=== PATIENT | female | born 1945 | race Caucasian/White ===

== ENCOUNTER 2018-02-04 15:17 | Outpatient (REF) | payer MEDICARE, BC, SELFPAY ==
[2018-02-04 20:18] LABS: HCT 41.4 % (36.0-46.0); HGB 13.9 g/dL (12.0-15.5); Mean Corp. HGB Concentration 33.6 g/dL (32.0-36.0); Mean Corpuscular Hemoglobin 30.3 pg (27.0-33.0); Mean Corpuscular Volume 90.2 fL (80-95); Mean Platelet Volume 10.7 fL (8.0-11.0); Platelet Count 244 x1000/uL (130-400); RBC 4.59 m/cumm (4.00-5.20); RBC Distribution Width 13.7 % (11.7-14.6); White Blood Cell Count 4.27 k/cumm (4.4-10.8)
[2018-02-04 20:22] LABS: ALT 20 U/L (12-78); AST 13 U/L (15-37); Albumin 3.8 g/dL (3.4-5.0); Alkaline Phosphatase 82 U/L (46-116); Anion Gap 8.4 mmol/L (3-11); BUN 22 mg/dL (7-18); Bilirubin, Total 0.4 mg/dL (0.2-1.0); CO2 30.6 mmol/L (21.0-32.0); CREATININE 0.68 mg/dL (0.55-1.02); Calcium 9.2 mg/dL (8.5-10.1); Chloride 104 mmol/L (98-107); Glucose 102 mg/dL (70-100); Potassium 4.1 mmol/L (3.5-5.1); Sodium 143 mmol/L (136-145); Total Protein 6.7 g/dL (6.4-8.2)
== END 2018-02-04 15:37 ==
LOC: NCHCN 15:17
PROVIDERS: Visit Provider Family Medicine
DX: Z01.818 Encounter for other preprocedural examination (principal); R69 Illness, unspecified
CPT/HCPCS: 80053; 85027

== ENCOUNTER 2019-07-18 15:54 | Outpatient (REF) | payer MEDICARE, BC, SELFPAY ==
[2019-07-18 22:35] LABS: Calculated LDL 177 mg/dL (<100); Cholesterol 282 mg/dL (<200); HDL Cholesterol 89 mg/dL (40-60); Triglyceride 82 mg/dL (<150)
[2019-07-18 22:42] LABS: Hemoglobin A1C 5.7 % (3.8-5.6)
[2019-07-18 22:56] LABS: C-Reactive Protein 0.15 mg/dL (0.0-0.3)
== END 2019-07-18 16:14 ==
LOC: NCHCN 15:54
PROVIDERS: PCP Physician Assistant Medical; Visit Provider Family Medicine
DX: E78.00 Pure hypercholesterolemia, unspecified (principal); E78.5 Hyperlipidemia, unspecified; R73.09 Other abnormal glucose; E66.3 Overweight; M17.0 Bilateral primary osteoarthritis of knee
CPT/HCPCS: 80061; 83036; 86140

== ENCOUNTER 2019-10-05 02:41 | Outpatient (CLI) | payer MEDICARE, BC, SELFPAY ==
--- NOTE | 2019-10-05 | DI.MAMMO_ITS ---
EXAM: MG MAMMO SCREENING CLINICAL HISTORY: SCREENING,Z12.39 TECHNIQUE: Mammograms were interpreted according to the usual protocol including computer analysis w [employer] CAD system, tomosynthesis and C-view imaging. COMPARISON: FINDINGS: The breasts are moderate density with fairly symmetrical distribution of fibroglandular tissue. No d ominant mass or clumped microcalcification is identified in either breast. The current examination i s compared with previous examinations including August 2015 and there has been no gross interval santiago e in appearance in comparison with previous studies. IMPRESSION: No specific evidence of malignancy at this time. Routine screening examinations are suggested at yea rly intervals in this age group according to the ACS ACR guidelines Category category: BI-RADS Cat 1 - Negative Breast Density - Category B - Scattered areas of fibroglandular density
--- NOTE | 2019-10-05 10:15 | DI.US_ITS ---
EXAM: US PELVIS TRANSVAGINAL CLINICAL HISTORY: <inf_study_reason> TECHNIQUE: Ultrasound of the pelvic, both abdominal and transvaginal was performed using standard pr otocol. COMPARISON: No exams were available for comparison FINDINGS: KIDNEYS: Kidneys are symmetric in size. No evidence of renal calculi. No evidence of hydronephrosis. No renal mass or cyst identified. The bladder is unremarkable. UTERUS: Position: Anteverted. Size: cm Endometrium: 5 millimeters in thickness. The endometrium appears heterogeneous, multiple small cysti c appearing areas.. Myometrium: Unremarkable. No fibroids. Cervix: Unremarkable. OVARIES: Neither ovary was able to be visualized transabdominally or transvaginally. CUL-DE-SAC: Free fluid: None. IMPRESSION: 1. Normal sonographic appearance of the kidneys. 2. Normal post menopausal uterus. thickened heterogeneous endometrium. No focal masses seen. 3. Nonvisualization of the ovaries. DATA REPOSITORY:
--- NOTE | 2019-10-05 10:50 | DI.RAD_ITS ---
EXAM: XR LUMBAR SPINE COMPLETE INDICATION: BACK PAIN, FELL FROM HORSE. COMPARISON: No exams were available for comparison TECHNIQUE: 2D digital imaging was performed. FINDINGS: The vertebral bodies are well maintained in height. The T12-L1 through L3-4 levels are unremarkable. There is moderate narrowing of the L4-5 disc space. There are prominent facet degenerative changes . There is marked narrowing of the L5-S1 disc space. No spondylolysis or spondylolisthesis is seen. Degenerative changes are seen at the SI joints, left greater than right. IMPRESSION: Degenerative changes greatest at L4-5 and L5-S1. DATA REPOSITORY: RADIATION DOSE DELIVERED:
--- NOTE | 2019-10-05 11:00 | DI.RAD_ITS ---
EXAM: XR HIP PELVIS ADULT BL CLINICAL HISTORY: HIP PAIN, FELL FROM HORSE. TECHNIQUE: 2D digital imaging was performed. COMPARISON: No exams were available for comparison FINDINGS: BONES: No acute fracture is present. No bony destructive lesion is seen. JOINTS: No dislocation present. The SI joints and pubic symphysis appear intact. There is minimal ac etabular spurring. The joint spaces are well maintained. SOFT TISSUE: Normal. IMPRESSION: Unrmarkable radiographs of bilat hips. Unremarkable radiographs of the pelvis DATA REPOSITORY: RADIATION DOSE DELIVERED:
--- NOTE | 2019-10-05 11:04 | DI.RAD_ITS ---
EXAM: XR THORACIC SPINE COMPLETE INDICATION: BACK PAIN, M54.5. COMPARISON: No exams were available for comparison TECHNIQUE: 2D digital imaging was performed. FINDINGS: There is a slight upper thoracic dextroscoliosis. There is mild compression of the inferior endplate of T10. The remaining vertebral bodies are well maintained in height. There are small endplate ost eophytes. Visualized portions of the lungs appear clear. The heart size appears normal. IMPRESSION: Mild compression fracture of the inferior endplate of T10. DATA REPOSITORY: RADIATION DOSE DELIVERED:
== END 2019-10-05 03:01 ==
PROVIDERS: PCP Family Medicine; Visit Provider Family Medicine
DX: Z12.31 Encounter for screening mammogram for malignant neoplasm of breast (principal); M25.551 Pain in right hip; M25.552 Pain in left hip; M54.5 Low back pain; M48.54XA Collapsed vertebra, not elsewhere classified, thoracic region, initial encounter for fracture; V80.010A Animal-rider injured by fall from or being thrown from horse in noncollision accident, initial encounter; M51.37 Other intervertebral disc degeneration, lumbosacral region; R10.2 Pelvic and perineal pain; N85.00 Endometrial hyperplasia, unspecified
CPT/HCPCS: 73521; 77063; 77067; 72072; 72110; 76830; 76856

== ENCOUNTER 2021-07-21 11:22 | Outpatient (REF) | payer MEDICARE, BC, SELFPAY ==
[2021-07-21 14:42] LABS: Calculated LDL 118 mg/dL (<100); Cholesterol 225 mg/dL (<200); HDL Cholesterol 86 mg/dL (40-60); Triglyceride 105 mg/dL (<150)
[2021-07-21 15:05] LABS: Vitamin D 25 Total 38.4 ng/mL (30-100)
== END 2021-07-21 11:23 | disposition home or self-care (01) ==
LOC: NCHCN 11:22
PROVIDERS: PCP Family Medicine; Visit Provider Family Medicine
DX: Z13.220 Encounter for screening for lipoid disorders (principal); Z13.820 Encounter for screening for osteoporosis
CPT/HCPCS: 80061; 82306

== ENCOUNTER 2021-10-30 16:28 | Outpatient (REF) | payer MEDICARE, BC, SELFPAY ==
[2021-11-01 12:09] LABS: COVID-19 RT-PCR UVMMC Result Negative (Negative)
== END 2021-10-30 16:29 | disposition home or self-care (01) ==
LOC: NCHCN 16:28
PROVIDERS: PCP Family Medicine; Visit Provider Family Medicine
DX: Z20.822 Contact with and (suspected) exposure to COVID-19 (principal); J06.9 Acute upper respiratory infection, unspecified
CPT/HCPCS: U0003; U0005

== ENCOUNTER 2022-03-27 14:58 | Outpatient (REF) | payer MEDICARE, BC, SELFPAY | END 2022-03-27 14:59 | disposition home or self-care (01) | LOC: NCHCN 14:58 | PROVIDERS: PCP Family Medicine; Visit Provider Family Medicine | DX: R35.0 Frequency of micturition (principal) | CPT/HCPCS: 87086 ==

== ENCOUNTER 2023-10-19 19:02 | Outpatient (REF) | payer MEDICARE, BC, SELFPAY ==
[2023-10-19 15:47] LABS: HCT 45.9 % (36.0-46.0); HGB 15.2 g/dL (11.2-15.7); MCH 30.6 pg (27.0-33.0); MCHC 33.1 % (32.0-36.0); MCV 93 fL (80-95); MPV 11.4 fL (8.0-11.0); Platelet Count 257 10^3/uL (130-400); RBC 4.96 10^6/uL (3.93-5.22); RDW 13.5 % (11.7-14.6); RDW-SD 45.9 fL; WBC 5.27 10^3/uL (4.4-10.8)
[2023-10-19 16:32] LABS: Vitamin B12 408 pg/mL (193-986)
== END 2023-10-19 19:03 | disposition home or self-care (01) ==
LOC: NCHCN 19:02
PROVIDERS: PCP Family Medicine; Visit Provider Family Medicine
DX: R53.83 Other fatigue (principal)
CPT/HCPCS: 85027; 82607; 84443

== ENCOUNTER 2024-08-24 11:10 | Outpatient (REF) | payer MEDICARE, BC, SELFPAY | END 2024-08-24 11:11 | disposition home or self-care (01) | LOC: NCHCN 11:10 | PROVIDERS: PCP Family Medicine; Visit Provider Family Medicine | DX: R30.0 Dysuria (principal) | CPT/HCPCS: 87086 ==

== ENCOUNTER 2025-03-31 11:20 | Emergency (ER) | payer MEDICARE, BC, SELFPAY ==
[2025-03-31] VITALS (11 sets, daily range): BP systolic 128–148; BP diastolic 43–59; PULSE 43–63; RESP 7–21; TEMP 36.1; O2SAT 89–98
--- NOTE | 2025-03-31 11:15 | RT.EKG_ITS ---
APPROVED REPORT Exam: Resting ECG Reason for Exam: low heart rate Patient Location: E HR:40 bpm ECG Measurements Heart Rate 40 AXIS [place] 149 P 70 QRSd 85 QRS 25 QT 476 T 36 QTc 390 Conclusion Sinus bradycardia...rate< 60 Physician: No STEMI
[2025-03-31 13:16] LABS: Glucose Negative (Negative)
[2025-03-31 13:29] LABS: C & S Indicated? No
[2025-03-31] MEDS: Cyclobenzaprine 10 MG TAB PO (13:35)
[2025-03-31] MEDS: ACETAMINOPHEN 1,000 MG/100 ML BAG 400 MG IVPB (13:35)
[2025-03-31 13:38] LABS: Abs Immature Grans 0.01 10^3/uL (0.0-0.06); HCT 45.7 % (36.0-46.0); HGB 15.6 g/dL (11.2-15.7); Immature Grans % 0.2 %; MCH 29.8 pg (27.0-33.0); MCHC 34.1 % (32.0-36.0); MCV 87 fL (80-95); MPV 10.0 fL (8.0-11.0); Platelet Count 244 10^3/uL (130-400); RBC 5.24 10^6/uL (3.93-5.22); RDW 13.3 % (11.7-14.6); RDW-SD 42.5 fL; WBC 5.53 10^3/uL (4.4-10.8)
[2025-03-31] MEDS: Normal Saline 500 ML IV (13:38)
[2025-03-31 13:50] LABS: INR 1.0 (0.9-1.1); PTT Activated 23.8 sec (20.6-30.2); Prothrombin Time 10.4 sec (9.1-11.1)
[2025-03-31 13:52] LABS: Lipase 43 U/L (<53)
[2025-03-31 13:54] LABS: Troponin I 10 ng/L (<35)
[2025-03-31 13:55] LABS: ALT 11 U/L (10-49); AST 17 U/L (<34); Albumin 4.4 g/dL (3.4-5.0); Alkaline Phosphatase 99 U/L (46-116); Anion Gap 6.8 mmol/L (3-11); BUN 12 mg/dL (9-23); Bilirubin, Total 0.70 mg/dL (0.2-1.2); CO2 29.2 mmol/L (20.0-31.0); Calcium 9.0 mg/dL (8.3-10.6); Chloride 108 mmol/L (98-107); Glucose 83 mg/dL (74-106); Potassium 4.3 mmol/L (3.5-5.1); Sodium 144 mmol/L (136-145); Total Protein 6.9 g/dL (5.7-8.2)
[2025-03-31] MEDS: Omnipaque 350 MG/ML 100 ML BTL IJ (14:16)
[2025-03-31] MEDS: Normal Saline - Diluent 50 ML VIAL IJ (14:16)
[2025-03-31] MEDS: Normal Saline Flush 10 ML SYR IVP (14:16)
--- NOTE | 2025-03-31 14:20 | DI.CT_ITS ---
Exam(s) CT LUMBAR SPINE RECONS CT CHEST PE ABD PELVIS W EXAM: CT CHEST PE ABD PELVIS W CLINICAL HISTORY: Pleuritic chest pain, shortness of breath. TECHNIQUE: Imaging Protocol: Axial computed tomography images with coronal and sagittal reformatted images were created and reviewed. Computer aided detection (CAD) was utilized. Axial, coronal and sagittal images of the lumbar spine were reconstructed from the abdomen pelvic CT in bone and soft tissue algorithm. CONTRAST MATERIAL: Intravenous: Omnipaque 350 Contrast volume:80 ml Oral: no COMPARISON: CR XR THORACIC SPINE COMPLETE from 10/05/2019 CR XR HIP PELVIS ADULT BL from 10/05/2019 CR XR LUMBAR SPINE COMPLETE from 10/05/[address] LUMBAR SPINE RECONS from 03/31/2025 FINDINGS: CHEST: Pulmonary parenchyma: Mild basilar dependent changes. No consolidation. No dominant measurable mass. Tracheobronchial tree: No bronchiectasis. No mucous plugging.No bronchial wall thickening. Pleura: No effusion or pneumothorax. Mediastinum: Within normal limits. Pulmonary arteries: No visible emboli. Cardiovascular: The heart is enlarged. No pericardial effusion. Thoracic aorta non-dilated. Bones: Old T10 mild compression fracture. No lytic or blastic lesions. No compression fractures. Soft tissues: Unremarkable. ABDOMEN and PELVIS: Liver: Normal density. Simple cysts in the liver. No follow-up is recommended. No suspicious mass. Gallbladder and biliary tract: No evidence of stones or wall thickening. No biliary dilatation. Pancreas: Normal density, no abnormal calcifications or inflammatory process. Spleen: Normal. Kidneys: Normal size, contour and axis. No radiodense stones. No obstructive uropathy. No suspicious masses seen. Adrenal glands: No masses seen. Aorta: Abdominal portion non-dilated. Lymph nodes: Within normal limits. Soft tissues: Unremarkable. Bladder: Unremarkable. Bowel: Small hiatal hernia. no obstruction or bowel wall thickening. The appendix is normal. Moderate quantity of stool. Peritoneal cavity: No ascites. No focal collection. No mesenteric inflammatory response. No free air. Bones: No evidence of fracture. Degenerative changes, greatest at L4-5 and L5-S1. Reproductive organs: Unremarkable for age. IMPRESSION: No acute abnormality in the chest, abdomen or pelvis. Old mild T10 compression fracture. No evidence of acute spine or pelvic fracture. The preliminary [facility] report was reviewed. RADIATION DOSE DELIVERED: Total DLP DATA REPOSITORY: All CT scans at this facility are submitted to the National Radiology Data Registry (NRDR) Dose Index Registry (DIR) with the [employer] (ACR). RADIATION OPTIMIZATION: All CT scans at this facility use at least one of these dose optimization techniques: automated exposure control; mA and/or kV adjustment per patient size (includes targeted exams where dose is matched to clinical indication); or iterative reconstruction.
[2025-03-31 14:49] LABS: Troponin I 9 ng/L (<35)
--- NOTE | 2025-03-31 14:56 | DI.[facility]_ITS ---
PROCEDURE INFORMATION: Exam: CT Lumbar Spine Without Contrast Exam date and time: 03/31/2025 2:05 PM Age: 80 years old Clinical indication: Other: Right upper quadrant abdominal pain, low bilateral TECHNIQUE: Imaging protocol: Computed tomography of the lumbar spine without contrast. COMPARISON: CR XR LUMBAR SPINE COMPLETE 10/05/2019 10:39 AM FINDINGS: Bones/joints: There are mild degenerative changes of the sacroiliac joints. Demineralization of the visualized bones, limiting sensitivity for nondisplaced fractures. There is a curvature of the lumbar spine convex to the left. The lumbar spine demonstrates mild to moderate degenerative changes at multiple levels. There is no evidence of acute fracture. There are no compression fractures or deformities. Mild anterolisthesis of L3 over L4 due to facet joint arthropathy. Soft tissues: Unremarkable. IMPRESSION: [id number] multilevel degenerative disease of the lumbar spine, most pronounced at L3-L4 but no severe thecal sac compression or neural foraminal stenosis. Dictated and Authenticated by: Cj Deleon MD. Orderin Guille Henderson MD
--- NOTE | 2025-03-31 15:01 | DI.[facility]_ITS ---
PROCEDURE INFORMATION: Exam: CTA Chest With Contrast CTA Abdomen With Contrast Exam date and time: 03/31/2025 2:05 PM Age: 80 years old Clinical indication: Other: Right upper quadrant abdominal pain, low bilateral TECHNIQUE: Imaging protocol: Computed tomographic angiography of the chest with contrast. Exam focused on the arteries. Computed tomographic angiography of the abdomen with contrast. Exam focused on the arteries. 3D rendering (Not supervised by radiologist): MIP and/or 3D reconstructed images were created by the technologist. Contrast material: OMNIPAQUE 350; Contrast volume: 80 ml; Contrast route: INTRAVENOUS (IV); COMPARISON: CR XR THORACIC SPINE COMPLETE 10/05/2019 10:38 AM FINDINGS: VASCULATURE: Pulmonary arteries: Normal. No pulmonary emboli. Aorta: No aortic aneurysm. No aortic dissection. Celiac and mesenteric arteries: No occlusion or significant stenosis. Renal arteries: No occlusion or significant stenosis. Veins: There are numerous benign phleboliths in the pelvis. CHEST: Lungs: Bibasilar atelectasis. There is no evidence of focal pulmonary consolidation. Pleural spaces: Unremarkable. No pneumothorax. No pleural effusion. Heart: Unremarkable. No cardiomegaly. No pericardial effusion. Diaphragm: A small hiatal hernia is present. ABDOMEN AND PELVIS: Liver: Multiple hypodense hepatic lesions consistent with cysts measuring up to 2 cm in the right hepatic lobe. Gallbladder and biliary ducts: Unremarkable. No calcified stones. No ductal dilation. Pancreas: Unremarkable. No mass. No ductal dilation. Spleen: Unremarkable. No splenomegaly. Adrenal glands: Unremarkable. No mass. Kidneys: Unremarkable kidneys. No solid mass. No hydronephrosis. Stomach and bowel: Unremarkable. No obstruction. No mucosal thickening. Intraperitoneal space: Unremarkable. No free air. No significant fluid collection. Lymph nodes: Unremarkable. No enlarged lymph nodes. Bones/joints: Mild curvature of the thoracic spine convex to the right. The thoracic spine demonstrates mild degenerative changes at multiple levels. Mild compression deformity of the T10 vertebral body. There are mild degenerative changes of the hip joints. The pubic symphysis demonstrates mild degenerative changes. There are mild degenerative changes of the sacroiliac joints. Soft tissues: Unremarkable. Other findings: The vasculature demonstrates diffuse mild atherosclerotic calcification. IMPRESSION: 1. No acute intra-abdominal process. 2. No acute cardiopulmonary process. 3. No pulmonary embolism. Dictated and Authenticated by: Cj Deleon MD. Orderin Guille Henderson MD
--- NOTE | 2025-03-31 15:09 | W.ED.GENAD ---
Discharge Plan Disposition Patient Disposition: Home Condition: Good Discharge Details Clinical Impression: Epigastric discomfort, Back pain Primary Care Provider: Terri Brothers ED Provider: Santiago Han Home Meds and New Rx's Prescriptions: No Action bupropion HCl 150 mg tablet extended release 24 hr 150 mg PO DAILY meloxicam 7.5 mg tablet 7.5 mg PO BID meclizine 25 mg tablet 25 mg PO TID PRN amoxicillin 500 mg capsule 500 mg PO ONCE PRN Rx Instructions: 1 hour before lifting zolpidem 5 mg tablet 6.25 mg PO HS PRN Discharge Instructions Instructions: Low Back Pain ED Additional Instructions: At this time as we discussed together your workup has returned very reassuring. There is no evidence of significant abnormality including heart attack, blood clot, severe bone fracture, electrolyte dysfunction, or other concerning pathology. As we discussed, you do have degenerative changes in your lower lumbar spine. Please continue to take Tylenol as needed for pain. Take the cyclobenzaprine only as needed for breakthrough back pain or muscle spasms. Please be mindful that this can cause sedation and make you feel significantly imbalanced. Make sure that you have a walker or someone to assist you if you are taking this medication to prevent any falls or trauma. If you notice any worsening of your symptoms, or any new symptoms such as vomiting, diarrhea, fever, chills, shortness of breath, chest pain, numbness, weakness, or fainting , please return immediately to the emergency department for reevaluation. Please follow up with your primary care provider as soon as possible for reassessment and reevaluation. As always, it was a pleasure participating in your medical care today. Stand Alone Forms: Portal Information Referrals: Terri Brothers [Primary Care Provider, Medicine] [facility] General Date/Time Provider Initiated Documentation: 03/31/25 11:42. [facility] Narrative: 80-year-old female with past medical history of anxiety, high cholesterol, presents today for evaluation of low back pain, mild epigastric discomfort with some mild difficulty breathing, and some mild associated chest tightness. Symptoms have been present for the last day. Back pain is made worse with movement bending or lifting. No improvement of symptomatology with rest. Chest symptoms are slightly made worse with breathing, but no associated nausea, vomiting or diarrhea. No tearing or ripping sensation. No chest heaviness, no significant pleuritic chest pain. Denies PE risk factors such as recent long car rides, immobilization, recent surgery, prior history of DVT or PE, morbid obesity, exogenous estrogen and smoking, hemoptysis, history of cancer. No other complaints at this time. Related Data Home Medications Medication Instructions Recorded Confirmed amoxicillin 500 mg capsule 500 mg PO ONCE PRN 03/31/25 03/31/25 bupropion HCl 150 mg 24 hr tablet, 150 mg PO DAILY 03/31/25 03/31/25 extended release meclizine 25 mg tablet 25 mg PO TID PRN 03/31/25 03/31/25 meloxicam 7.5 mg tablet 7.5 mg PO BID 03/31/25 03/31/25 zolpidem 5 mg tablet 6.25 mg PO HS PRN 03/31/25 03/31/25 Allergies Allergy/AdvReac Type Severity Reaction Status Date / Time ciprofloxacin (From Cipro) AdvReac Mild Nausea Verified 03/31/25 11:47 General Stated Complaint: Nk/Back Pain JEB: 2 Exam Narrative Exam Narrative: 1.Const: Well-nourished, Well-developed, appearing stated age 2.Eyes: PERRL, no conjunctival injection, and symmetrical lids. 3.ENT: Atraumatic external nose and ears. Moist MM. Neck: Symmetric, trachea midline, No thyromegaly. 4.CVS: +S1/S2, Peripheral pulses 2+ and equal in all extremities. Brisk capillary refill in all extremities. 5.RESP: Unlabored respiratory effort. Clear to auscultation bilaterally. No wheezes rales or rhonchi 6.GI: Soft, Nondistended, No hepatosplenomegaly. No guarding or rebound. Mild epigastric discomfort. 7.MSK: Normocephalic/Atraumatic, Extremities w/o deformity or ttp No cyanosis or clubbing, Normal movement of all extremities. No calf tenderness No midline tenderness over cervical thoracic or lumbar spine. Mild to moderate paraspinal spasms of the erector spinae muscles in the mid to lower lumbar regions. 8.Skin: Warm, Dry. No rashes or lesions. No rash or lesion on the back 9.Neuro: salvage cutter II-XII grossly intact. Sensation grossly intact, no focal neurologic deficits. 10.Psych: (AAO) x3. Appropriate mood and affect Course Vital Signs Vital signs: Vital Signs Temperature 36.1 C L 03/31/25 11:26 Pulse 44 L 03/31/25 11:26 Respiratory Rate 15 03/31/25 11:26 Blood Pressure 128/59 L 03/31/25 11:26 Pulse Oximetry 98 03/31/25 11:26 Temperature 36.1 C L 03/31/25 11:26 Pulse 63 03/31/25 13:04 Pulse 43 L 03/31/25 13:10 Respiratory Rate 14 03/31/25 13:10 Blood Pressure 134/43 L 03/31/25 12:25 Blood Pressure Mean 71 03/31/25 12:25 Blood Pressure Position Sitting 03/31/25 11:26 Pulse Oximetry 89 L 03/31/25 13:04 Oxygen Delivery Method Room Air 03/31/25 12:22 Oxygen Flow Rate 0 03/31/25 12:22 Pain Level 9 03/31/25 11:59 Lab/Test Results Lab/Test Results: Laboratory Tests Range/Units 03/31/25 03/31/25 03/31/25 13:00 13:25 14:25 WBC (4.4-10.8) 10^3/uL 5.53 RBC (3.93-5.22) 10^6/uL 5.24 H Hgb (11.2-15.7) g/dL 15.6 Hct (36.0-46.0) % 45.7 MCV (80-95) fL 87 MCH (27.0-33.0) pg 29.8 MCHC (32.0-36.0) % 34.1 RDW (11.7-14.6) % 13.3 Plt Count (130-400) 10^3/uL 244 MPV (8.0-11.0) fL 10.0 Immature Gran % % 0.2 Neutrophils % % 57.0 Lymphocytes % % 28.9 Monocytes % % 9.9 Eosinophils % % 2.7 Basophils % % 1.3 Nucleated RBC % (0.0-0.3) % 0.0 Absolute Neutrophils (1.2-6.7) 10^3/uL 3.15 Absolute Lymphocytes (1.2-3.4) 10^3/uL 1.60 Absolute Monocytes (0.1-0.8) 10^3/uL 0.55 Absolute Eosinophils (0.0-0.7) 10^3/uL 0.15 Absolute Basophils (0.0-0.2) 10^3/uL 0.07 PT (9.1-11.1) sec 10.4 INR (0.9-1.1) 1.0 APTT (20.6-30.2) sec 23.8 Sodium (136-145) mmol/L 144 Potassium (3.5-5.1) mmol/L 4.3 Chloride (98-107) mmol/L 108 H Carbon Dioxide (20.0-31.0) mmol/L 29.2 Anion Gap (3-11) mmol/L 6.8 BUN (9-23) mg/dL 12 Creatinine (0.55-1.02) mg/dL 0.74 Est GFR (CKD-EPI 2020) (mL/min/1.73m2) 75.50 Glucose (74-106) mg/dL 83 Calcium (8.3-10.6) mg/dL 9.0 Total Bilirubin (0.2-1.2) mg/dL 0.70 AST (<34) U/L 17 ALT (10-49) U/L 11 Alkaline Phosphatase (46-116) U/L 99 Troponin I (<35) ng/L 10 9 Total Protein (5.7-8.2) g/dL 6.9 Albumin (3.4-5.0) g/dL 4.4 Lipase (<53) U/L 43 Urine Color (Yellow) Yellow Urine Clarity (Clear) Clear Urine pH (5-8) 6.5 Ur Specific [place] (1.005-1.025) 1.015 Urine Protein (Neg-Trace) mg/dL Negative Urine Ketones (Negative) mg/dL Negative Urine Blood (Negative) Trace-intact H Urine Nitrite (Negative) Negative Urine Bilirubin (Negative) Negative Urine Urobilinogen (Up to 0.2) mg/dL 0.2 Ur Leukocyte Esterase (Negative) Small H Urine RBC (0-2) HPF 3-5 H Urine WBC (0-5) HPF 5-10 Ur Epithelial Cells (Negative) HPF Moderate Urine Crystals (Negative) HPF Negative Urine Bacteria (Negative) HPF Few Urine Casts (Negative) LPF Negative Urine Mucus (Negative) Moderate Urine Other (Negative) Negative Ur Culture Indicated? No Urine Glucose (Negative) mg/dL Negative Medical Decision Making 80-year-old female with past medical history of anxiety, high cholesterol, presents today for evaluation of low back pain, mild epigastric discomfort with some mild difficulty breathing, and some mild associated chest tightness. Symptoms have been present for the last day. Back pain is made worse with movement bending or lifting. No improvement of symptomatology with rest. Chest symptoms are slightly made worse with breathing, but no associated nausea, vomiting or diarrhea. No tearing or ripping sensation. No chest heaviness, no significant pleuritic chest pain. Denies PE risk factors such as recent long car rides, immobilization, recent surgery, prior history of DVT or PE, morbid obesity, exogenous estrogen and smoking, hemoptysis, history of cancer. No other complaints at this time. Exam demonstrates a well-appearing female, slightly dry mucous membranes, vital signs otherwise stable. No abdominal tenderness, no rash on the back or chest to suggest shingles, no abnormal lung sounds. Differential for the patient's symptomatology is quite broad, includes anxiety, cardiac etiology, PE, intra-abdominal pathology, pancreatitis, UTI or Jeovany. Back pain may be secondary to musculoskeletal etiology. We will get CT imaging to rule out PE, discopathy, osseous pathology, obstruction, we will evaluate for cardiac concerns, monitor closely and reassess. Will rehydrate, give cyclobenzaprine for muscle spasms. 3:35 PM Laboratory workup demonstrates no significant abnormality, no white count bandemia or left shift. Electrolytes normal, serial troponins normal. Lipase normal. Urinalysis was dirty, and we will get repeat. Patient feels much better after cyclobenzaprine and fluid rehydration. No evidence of cauda equina syndrome, no saddle anesthesia. She has normal reflexes. Patient otherwise looks notably well, and there is no evidence of acute life-threatening etiology noted on imaging. No evidence to suggest ACS. No PE or dissection. Patient there is evidence of mild to moderate multilevel degenerative disease of the lumbar spine, which is location of the patient's pain symptoms. No evidence to suggest cauda equina syndrome no. At this time with the patient's notable improvement of her symptoms, I do feel that discharge is reasonable. Will give small course of cyclobenzaprine to go home with, I had a long discussion with her about the potential concerns with this and the importance of close monitoring with her significant other for sleepiness or altered mental status while on the medication due to its sedative effects. She understands. Recommend continued NSAID therapy, stretching and heating pad. I have extensively reviewed the treatment plan and discharge instructions with the patient and their family. I have addressed all patient concerns at this time. The patient and family was made aware of what symptoms to monitor for that would warrant a return to the emergency department. Discussed the plan with the patient and family, they demonstrate verbal understanding and agreement with our assessment and plan at this time. The documentation in this chart was dictated using [employer] dictation software. Please excuse any dictation errors. Initial urinalysis was dirty, repeat urinalysis shows rare epithelial, 0-2 WBCs negative leuk esterase no evidence of infection. FINDINGS: Bones/joints: There are mild degenerative changes of the sacroiliac joints. Demineralization of the visualized bones, limiting sensitivity for nondisplaced fractures. There is a curvature of the lumbar spine convex to the left. The lumbar spine demonstrates mild to moderate degenerative changes at multiple levels. There is no evidence of acute fracture. There are no compression fractures or deformities. Mild anterolisthesis of L3 over L4 due to facet joint arthropathy. Soft tissues: Unremarkable. IMPRESSION: [id number] multilevel degenerative disease of the lumbar spine, most pronounced at L3-L4 but no severe thecal sac compression or neural foraminal stenosis. Thank you for allowing us to participate in the care of your patient. Dictated and Authenticated by: Cj Deleon MD 03/31/2025 2:56 PM Eastern Time ([place] & [place]) FINDINGS: VASCULATURE: Pulmonary arteries: Normal. No pulmonary emboli. Aorta: No aortic aneurysm. No aortic dissection. Celiac and mesenteric arteries: No occlusion or significant stenosis. Renal arteries: No occlusion or significant stenosis. Veins: There are numerous benign phleboliths in the pelvis. CHEST: Lungs: Bibasilar atelectasis. There is no evidence of focal pulmonary consolidation. Pleural spaces: Unremarkable. No pneumothorax. No pleural effusion. Heart: Unremarkable. No cardiomegaly. No pericardial effusion. Diaphragm: A small hiatal hernia is present. ABDOMEN AND PELVIS: Liver: Multiple hypodense hepatic lesions consistent with cysts measuring up to 2 cm in the right hepatic lobe. Gallbladder and biliary ducts: Unremarkable. No calcified stones. No ductal dilation. Pancreas: Unremarkable. No mass. No ductal dilation. Spleen: Unremarkable. No splenomegaly. Adrenal glands: Unremarkable. No mass. Kidneys: Unremarkable kidneys. No solid mass. No hydronephrosis. Stomach and bowel: Unremarkable. No obstruction. No mucosal thickening. Intraperitoneal space: Unremarkable. No free air. No significant fluid collection. Lymph nodes: Unremarkable. No enlarged lymph nodes. Bones/joints: Mild curvature of the thoracic spine convex to the right. The thoracic spine demonstrates mild degenerative changes at multiple levels. Mild compression deformity of the T10 vertebral body. There are mild degenerative changes of the hip joints. The pubic symphysis demonstrates mild degenerative changes. There are mild degenerative changes of the sacroiliac joints. Soft tissues: Unremarkable. Other findings: The vasculature demonstrates diffuse mild atherosclerotic calcification. IMPRESSION: 1. No acute intra-abdominal process. 2. No acute cardiopulmonary process. 3. No pulmonary embolism. Thank you for allowing us to participate in the care of your patient. Dictated and Authenticated by: Cj Deleon MD 03/31/2025 3:00 PM Eastern Time ([place] & [place]) PFSH All Active Problems (Updated 03/31/25 @ 15:38 by Santiago Han DO) Back pain (Acute) Epigastric discomfort (Acute) Social History Smoking risk assessment performed?: No
[2025-03-31] MEDS: Cyclobenzaprine 10 MG TAB, 3 TABS/BTL PO (15:39)
[2025-03-31 16:03] LABS: Glucose Negative (Negative)
[2025-03-31 16:11] LABS: C & S Indicated? No; WBC 0-2 HPF (0-5)
== END 2025-03-31 15:45 | disposition home or self-care (01) ==
PROVIDERS: Emergency Provider Student in an Organized Health Care Education/Training Program; PCP Family Medicine
DX: M54.50 Low back pain, unspecified (principal); R10.13 Epigastric pain
CPT/HCPCS: 36415; 71275; 74177; 80053; 83690; 93005; 96361; 96374; 99284; 81003; 81015; 84484; 85025; 85610; 85730; 93010; J0131; J3490